=== PATIENT | female | born 1940 | race African-American/Black ===

== ENCOUNTER 2019-03-17 05:55 | Inpatient (IN) | payer BC ==
[2019-03-12 14:20] VITALS: BMI 26.5
[~2019-03-17 05:55] MED LIST: CEFAZOLIN 1 GM/D5W 1 GRAM/50 ML BAG IVPB ONE; TRANEXAMIC ACID 1000 MG/10 ML VIAL IVPUSH ONE; VANCOMYCIN 1,000 MG in DEXTROSE 5%-WATER - 250 ML IVPB ONE
[2019-03-17] MEDS ORDERED: BUPIVACAINE LIPOSOME/PF (EXPAREL) 266 MG/20 ML VIAL ONE (07:04)
[2019-03-17] MEDS ORDERED: SODIUM CHLORIDE 0.9% P/F 10 ML VIAL IJ ONE (07:04)
[2019-03-17] MEDS ORDERED: MIDAZOLAM HCL 2 MG/2 ML SINGLE DOSE VIAL ONE ×3 (07:04→07:31)
[2019-03-17] MEDS ORDERED: PROPOFOL 20 ML ONE ×2 (07:31)
[2019-03-17] MEDS ORDERED: TRANEXAMIC ACID 1000 MG/10 ML VIAL ONE ×2 (07:33→10:07)
[2019-03-17] MEDS ORDERED: ceFAZolin SODIUM 1 GM VIAL ONE ×2 (07:33→10:07)
[2019-03-17] MEDS ORDERED: VANCOMYCIN 1,000 MG VIAL (RESTRICTED TO ID ONLY) ONE (08:07)
[2019-03-17] MEDS ORDERED: BUPIVACAINE HCL/PF 0.5% (5 MG/ML) 30 ML VIAL IJ ONE (08:07)
[2019-03-17] MEDS ORDERED: MAG HYDROX/AL HYDROX/SIMETH 30 ML UNIT-DOSE CUP PO PRN (11:09)
[2019-03-17] MEDS ORDERED: MAGNESIUM HYDROX 2400MG/30ML ORAL SUSPENSION 30 ML CUP PO PRN (11:09)
[2019-03-17] MEDS ORDERED: ONDANSETRON 4 MG/2 ML VIAL IVPUSH PRN (11:09)
[2019-03-17] MEDS ORDERED: LACTATED RINGERS SOLUTION 1,000 ML IV SCH (11:15)
--- NOTE | 2019-03-17 12:04 | HP ---
CHIEF COMPLAINT: Right knee osteoarthritis PCP: Dr. Leoncio Bain [phone] Cardiology: Dr. Chahal [phone] HISTORY OF PRESENT ILLNESS: 79 year-old female with a PMH significant for HTN, HLD, CAD s/p stent, diastolic dysfunction, TIA, Type II IDDM, and tricompartment OA of the right knee, now s/p right subvastus posterior stabilized total knee arthroplasty ( cemented [place]) earlier today with Dr. Eduardo Lyn. Recent Travel: No PAST MEDICAL HISTORY: Hypertension Hyperlipidemia Coronary artery disease Grade I diastolic dysfunction TIA (2003) Type II IDDM Tuberculosis (1961) Bilateral knee osteoarthritis PAST SURGICAL HISTORY: Cardiac LEO (2016, Index) Caratracts Open removal of kidney stones 1972 Right knee arthroscopy Bunionectmy/Hammertoe Social History: ; lives with Victoria and grandson Lico Smoking: never Alcohol: rare Drugs: no Family History: Mother DM, left arm mass, 54; father HTN, prostate cancer with mets 89; 6 children, 1 with HTN Allergies No Known Allergies Allergy (Verified 03/12/19 13:58) HOME MEDICATIONS: Home Medications Medication Instructions Recorded Aspirin Coated [Ecotrin -] 81 mg PO DAILY 03/12/19 Gabapentin 300 mg PO BID 03/12/19 Hydrochlorothiazide [Hctz -] 25 mg PO DAILY 03/12/19 Insulin (Levemir) [Levemir Vial] 40 unit SQ DAILY 03/12/19 Losartan Potassium 50 mg PO DAILY 03/12/19 Metoprolol Succinate 25 mg PO BID 03/12/19 Rosuvastatin Calcium [Crestor] 40 mg PO DAILY 03/12/19 Semaglutide [Ozempic] 1 mg SQ WEEKLY 03/12/19 REVIEW OF SYSTEMS CONSTITUTIONAL: Absent: fever, chills, diaphoresis, generalized weakness, malaise, loss of appetite, weight change HEENT: Absent: rhinorrhea, nasal congestion, throat pain, throat swelling, difficulty swallowing, mouth swelling, ear pain, eye pain, visual changes CARDIOVASCULAR: Absent: chest pain, syncope, palpitations, irregular heart rate, lightheadedness , peripheral edema RESPIRATORY: Absent: cough, shortness of breath, dyspnea with exertion, orthopnea, wheezing, stridor, hemoptysis GASTROINTESTINAL: Absent: abdominal pain, abdominal distension, nausea, vomiting, diarrhea, constipation, melena, hematochezia GENITOURINARY: Absent: dysuria, frequency, urgency, hesitancy, hematuria, flank pain, genital pain MUSCULOSKELETAL: +10/10 right knee pain Absent: myalgia, arthralgia, joint swelling, back pain, neck pain SKIN: Absent: rash, itching, pallor HEMATOLOGIC/IMMUNOLOGIC: Absent: easy bleeding, easy bruising, lymphadenopathy, frequent infections ENDOCRINE: Absent: unexplained weight gain, unexplained weight loss, heat intolerance, cold intolerance NEUROLOGIC: Absent: headache, focal weakness or paresthesias, dizziness, unsteady gait, seizure, mental status changes, bladder or bowel incontinence PSYCHIATRIC: Absent: anxiety, depression, suicidal or homicidal ideation, hallucinations. PHYSICAL EXAMINATION Vital Signs - 24 hr 03/17/19 03/17/19 03/17/19 06:56 11:13 11:15 Temperature 98.1 F 98.0 F Pulse Rate 84 82 78 Respiratory 18 16 16 Rate Blood Pressure 118/69 95/57 L 97/58 L O2 Sat by Pulse 96 96 Oximetry (%) 03/17/19 03/17/19 03/17/19 11:20 11:25 11:40 Temperature Pulse Rate 76 78 76 Respiratory 16 16 16 Rate Blood Pressure 101/57 L 105/58 L 101/60 O2 Sat by Pulse 96 100 100 Oximetry (%) 03/17/19 11:55 Temperature Pulse Rate 69 Respiratory 16 Rate Blood Pressure 108/61 O2 Sat by Pulse 100 Oximetry (%) GENERAL: Awake, alert, and fully oriented, in no acute distress. HEAD: Normal with no signs of trauma. EYES: Pupils equal, round and reactive to light, extraocular movements intact, sclera anicteric, conjunctiva clear. No lid lag. LUNGS: Anterior breath sounds CTA HEART: Regular rate and rhythm, S1 and S2 ABDOMEN: Soft, nontender, not distended UPPER EXTREMITIES: 2+ pulses, warm, well-perfused. No cyanosis. No clubbing. No peripheral edema. LOWER EXTREMITIES: 2+ pulses, warm, well-perfused. No calf tenderness. No peripheral edema. SCDs, TEDs. Right knee surgical wrapping c/d/i; icepak NEUROLOGICAL: Cranial nerves II-XII intact. Normal speech. Laboratory Results - last 24 hr 03/17/19 07:09 POC Glucometer 82 Pre op 03/09/19 BUN 11 Cr 0.98 Hgb 11.0 Intra op Ancef 2g x 1 Vanc 1g x 1 LR 500 ASSESSMENT/PLAN 79 year-old female with a PMH significant for HTN, HLD, CAD s/p stent, diastolic dysfunction, TIA, Type II IDDM, and tricompartment OA of the right knee, now s/p right subvastus posterior stabilized total knee arthroplasty ( cemented [place]) earlier today with Dr. Eduardo Lyn. Tricompartment OA of the right knee s/p right subvastus posterior stabilized total knee arthroplasty --POD #0 --perioperative antibiotics per surgery --pain management per surgery --ASA 325mg daily --protonix --bowel regimen --incentive spirometry --+Hemovac drain: no recorded output Hypertension --BP stable --continue metoprolol Hyperlipidemia --continue Crestor Coronary artery disease --continue ASA, statin, metoprolol Diastolic dysfunction, Grade I --per echo 06/15/18 --not on diuretics TIA --continue ASA, statin Type II IDDM --Levemir --Novolog sliding scale coverage FEN Fluids: LR @125mL/hr Electrolytes: replete as indicated Nutrition: regular diet DVT prophylaxis: OOB, ambulation, SCDs, TEDs, ASA 325mg daily Physical therapy Dispo: continues to require inpatient care. Full code. Visit type - Emergency Visit Emergency Visit: Yes ED Registration Date: 03/17/19 Care time: The patient presented to the Emergency Department on the above date and was hospitalized for further evaluation of their emergent condition. - New Patient This patient is new to me today: Yes Date on this admission: 03/17/19 - Critical Care Critical Care patient: No
--- NOTE | 2019-03-17 14:27 | SURG ---
Surgery Stonemason Supervisor Note Stonemason Supervisor: Morteza Galeano PA-C Date of Service: 03/17/19 Diagnosis: Right OA, DJD Procedure: Right total knee replacement I was present for the entirety of the operative procedure. For further detail, please refer to operative report. Visit type - Case Type Case Type: Scheduled - New patient This patient is new to me today: Yes Date on this admission: 03/17/19
--- NOTE | 2019-03-17 15:57 | OP ---
DATE OF OPERATION: DATE OF DICTATION: 03/17/2019 SURGEON: Eduardo Lyn MD PARQUETRY FLOOR LAYER: FELISA Palmer PREOPERATIVE DIAGNOSIS: Tricompartmental osteoarthritis, right knee. POSTOPERATIVE DIAGNOSIS: Tricompartmental osteoarthritis, right knee. OPERATION PERFORMED: Right subvastus posterior stabilized total knee arthroplasty (cemented [place]). ANESTHESIA: Conscious sedation with spinal anesthesia and peripheral nerve block. ANTIBIOTICS GIVEN: 2 g Kefzol, 1 g vancomycin preoperative, 1 g Kefzol given at the end of the procedure. TXA 1 g preoperative, and 1 g at the time of seating of the implant. SPECIAL COMMENT: Jain, refuses blood transfusions. PROCEDURE: Patient correctly identified, brought to the operating room. Right lower extremity was prepped, draped in the routine manner with a Betadine scrub solution, wiped off with alcohol, DuraPrep applied. Free drape. The knee revealed the presence of a 20-degree fixed flexion deformity and 10-degree fixed varus deformity. A midline incision was utilized. The dissection was taken through the subcutaneous tissues to the quadriceps mechanism. The proximal and medial aspect of the tibia was dissected using Bovie for hemostasis purposes. The soft tissue elements were taken right off the bone bed appropriately. The subvastus was utilized by dissecting the epimysium of the vastus medialis and extended all the way back to the linea aspera. The vastus medialis was lifted off the soft tissue of the intramuscular septum in a stripping angle enough to facilitate easy dislocatability of the knee itself. The knee was flexed. The patella was subluxed laterally. The tibia externally rotated to alleviate tension on the quadriceps mechanism. This revealed the presence of severe tricompartmental osteoarthritis. The tibia was cut utilizing a [employer] jig system. This was cut to 3 degrees of external rotation and neutral varus/valgus, that is, 90 degrees to the shaft of the tibia. The measurement for the implant was that of a size 6 tibial tray. Large osteophyte was noted. The femur was then cut according to the jig system measuring a size 5 femoral component. The flexion and extension gaps were even at 13 mm. The menisci were resected along with peripheral margin using a bipolar cautery. Bone cuts were made from patella tendon. The lug holes were drilled into patella bone bed utilizing the appropriate lollipop jig. Once this has been performed, the patella and the quadriceps mechanisms were held out of harm's way, it was clearly noted at that point in time all bone cuts had made, the trialing components, which were measured at a size 5 femur, size 6 tibia, and a size 13 polyethylene patella button. This enabled easily tracking of the patella in a full range of movement from 0-130 degrees. The implants were seated utilizing regular cement. The bone bed was thoroughly lavaged with pulse lavage, and as a result of that, all extraneous cement was removed. Once the cement had been cured, a polyethylene posterior stabilized component inserted accordingly. The wounds were washed thoroughly. All extraneous cement had been removed. Used pulse lavage for washout. A 1/8-inch Hemovac was placed in the subvastus bed. The closure was as follows: All the soft tissue, retinacular tissues with No. 1 Vicryl right around to the posteromedial aspect of the femur to close the subvastus approach, subcutaneous 1 Vicryl, skin 3-0 Monocryl with Steri-Strips. Draining 1/8 inch as outlined above noted. Postoperative x-rays showed excellent position of the implants. No complications. MD MAGO Bernal/[id number]
[2019-03-17] MEDS: ACETAMINOPHEN 325 MG TABLET (FP) PO SCH ×2 (16:02→21:25)
[2019-03-17] MEDS: INSULIN SLIDING SCALE (NOVOLOG) 1 VIAL SQ SCH ×2 (17:13→21:27)
[2019-03-17] MEDS: oxyCODONE HCL 5 MG TABLET PO PRN ×3 (17:40→21:52)
[2019-03-17] MEDS: CEFAZOLIN 2 GM/D5W 2 GM/50 ML ML IVPB SCH (17:40)
[2019-03-17] MEDS: GABAPENTIN 300 MG CAPSULE (FP) PO SCH (21:26)
[2019-03-17] MEDS: SENNOSIDES/DOCUSATE COMBO (SENNA PLUS) TABLET (UD) PO SCH (21:27)
[2019-03-17] MEDS: ASCORBIC ACID 500 MG TABLET (FP) PO SCH (21:31)
[2019-03-17] MEDS: metoPROLOL SUCCINATE 25 MG TAB.SR.24H (FP) PO SCH (21:31)
[2019-03-17] MEDS ORDERED: GABAPENTIN 300 MG CAPSULE (FP) PO SCH ×2 (22:00)
[2019-03-18] MEDS: CEFAZOLIN 2 GM/D5W 2 GM/50 ML ML IVPB SCH (01:59)
[2019-03-18] MEDS: oxyCODONE HCL 5 MG TABLET PO PRN ×2 (01:59→06:48)
[2019-03-18] MEDS: ACETAMINOPHEN 325 MG TABLET (FP) PO SCH (03:16)
[2019-03-18] MEDS: INSULIN SLIDING SCALE (NOVOLOG) 1 VIAL SQ SCH ×4 (06:21→21:54)
[2019-03-18] MEDS: ASPIRIN 325 MG TABLET PO SCH (07:55)
[2019-03-18 08:16] LABS: HEMATOCRIT 31.1 % (32.4-45.2); HEMOGLOBIN 10.2 GM/dl (10.7-15.3); MCH 29.2 pg (25.7-33.7); MCHC 32.7 g/dl (32.0-36.0); MEAN CELL VOLUME 89.3 fl (80-96); MEAN PLT VOLUME 7.9 fl (7.5-11.1); PLATELET COUNT 238 K/MM3 (134-434); RBC 3.48 M/mm3 (3.60-5.2); RDW 14.8 % (11.6-15.6); WHITE BLOOD COUNT 6.7 K/mm3 (4.0-10.8)
[2019-03-18 08:18] LABS: CALCIUM 8.9 mg/dl (8.5-10); POTASSIUM 3.3 mmol/L (3.5-5.1)
--- NOTE | 2019-03-18 10:03 | PN ---
Progress Note (short form) - Note Progress Note: ANESTHESIA 79 YO FEMALE POD #1 S/P RTKA Patient doing well. Ambulating with assistance. Pain adequately controlled VSS, Afebrile Continue current care, encouraged IS use, No anesthetic complications
--- NOTE | 2019-03-18 10:25 | PN ---
Progress Note (short form) - Note Progress Note: 79yo F s/p Rt TKA POD 1, pt seen and examined sitting up in chair. Pt denies fever, chills, n/v. Pt states pain is controlled. Pt denies numbness or weakness in foot. Last Vital Signs Temp Pulse Resp BP Pulse Ox 98.4 F 69 18 113/41 L 94 L 03/18/19 10:00 03/18/19 10:00 03/18/19 10:00 03/18/19 10:00 03/18/19 10:00 CBC, BMP 03/18/19 07:40 03/18/19 07:40 PE: Gen: a&O X3 Resp: breathing comfortably Ext: RLE bandage in place, clean. Drain in place with serosanguinous drainage Output: 55ml Problem List - Problems (1) Total knee replacement status Assessment/Plan: Plan -pt appears to be doing well, will plan for discharge tomorrow to acute rehab -OOB/ambulate with PT -pain control -dvt ppx Code(s): Z96.659 - PRESENCE OF UNSPECIFIED ARTIFICIAL KNEE JOINT Qualifiers: Laterality: right Qualified Code(s): Z96.651 - Presence of right artificial knee joint
[2019-03-18] MEDS: SENNOSIDES/DOCUSATE COMBO (SENNA PLUS) TABLET (UD) PO SCH ×2 (10:42→21:54)
[2019-03-18] MEDS: PANTOPRAZOLE 40 MG TABLET (FP) PO SCH (10:42)
[2019-03-18] MEDS: GABAPENTIN 300 MG CAPSULE (FP) PO SCH ×2 (10:42→21:54)
[2019-03-18] MEDS: MULTIVITAMINS (DAILY MVI) TABLET (FP) PO SCH (10:42)
[2019-03-18] MEDS: ASCORBIC ACID 500 MG TABLET (FP) PO SCH ×2 (10:42→21:55)
[2019-03-18] MEDS: POTASSIUM CHLORIDE TABS 20 MEQ TABLET.ER (FP) PO SCH ×2 (10:42→15:46)
[2019-03-18] MEDS: INSULIN (LEVEMIR) 100 UNITS/ML UNITS SQ SCH (10:42)
[2019-03-18] MEDS: metoPROLOL SUCCINATE 25 MG TAB.SR.24H (FP) PO SCH ×2 (10:42→21:55)
[2019-03-18] MEDS: ROSUVASTATIN CA 40 MG TABLET PO SCH (10:43)
[2019-03-18] MEDS: HYDROCHLOROTHIAZIDE 25 MG TABLET (FP) PO SCH (10:44)
[2019-03-18] MEDS: LOSARTAN POTASSIUM 50 MG TABLET (FP) PO SCH (10:44)
--- NOTE | 2019-03-18 11:56 | PN ---
Physical Exam: SUBJECTIVE: Patient seen and examined OBJECTIVE: Vital Signs Period Temp Pulse Resp BP Sys/Foster Pulse Ox Last 24 Hr 98.0 F-99.7 F 69-87 16-18 105-152/41-71 94-100 GENERAL: The patient is awake, alert, and fully oriented, in no acute distress. HEAD: Normal with no signs of trauma. EYES: PERRL, extraocular movements intact, sclera anicteric, conjunctiva clear. No ptosis. ENT: Ears normal, nares patent, oropharynx clear without exudates, moist mucous membranes. NECK: Trachea midline, full range of motion, supple. LUNGS: Breath sounds equal, clear to auscultation bilaterally, no wheezes, no crackles, no accessory muscle use. HEART: Regular rate and rhythm, S1, S2 without murmur, rub or gallop. ABDOMEN: Soft, nontender, nondistended, normoactive bowel sounds, no guarding, no rebound, no hepatosplenomegaly, no masses. EXTREMITIES: 2+ pulses, warm, well-perfused, no edema. NEUROLOGICAL: Cranial nerves II through XII grossly intact. Normal speech, gait not observed. PSYCH: Normal mood, normal affect. SKIN: Warm, dry, normal turgor, no rashes or lesions noted Laboratory Results - last 24 hr 03/17/19 03/17/19 03/17/19 11:42 16:50 20:42 WBC RBC Hgb Hct MCV MCH MCHC RDW Plt Count MPV Sodium Potassium Chloride Carbon Dioxide Anion Gap BUN Creatinine Est GFR (CKD-EPI)AfAm Est GFR (CKD-EPI)NonAf POC Glucometer 81 88 147 Random Glucose Calcium 03/18/19 03/18/19 03/18/19 06:14 07:40 07:40 WBC 6.7 RBC 3.48 L Hgb 10.2 L Hct 31.1 L MCV 89.3 MCH 29.2 MCHC 32.7 RDW 14.8 Plt Count 238 MPV 7.9 Sodium 136 Potassium 3.3 L Chloride 95 L Carbon Dioxide 31 Anion Gap 10 BUN 14.0 Creatinine 1.0 Est GFR (CKD-EPI)AfAm 61.62 Est GFR (CKD-EPI)NonAf 53.17 POC Glucometer 182 Random Glucose 161 H Calcium 8.9 03/18/19 11:50 WBC RBC Hgb Hct MCV MCH MCHC RDW Plt Count MPV Sodium Potassium Chloride Carbon Dioxide Anion Gap BUN Creatinine Est GFR (CKD-EPI)AfAm Est GFR (CKD-EPI)NonAf POC Glucometer 175 Random Glucose Calcium Active Medications Generic Name Dose Route Start Last Admin Trade Name Freq PRN Reason Stop Dose Admin Acetaminophen 1,000 mg 03/18/19 07:35 Ofirmev Injection - IVPB Q6H PRN PAIN Al Hydroxide/Mg Hydroxide 30 ml 03/17/19 11:09 Mylanta Oral Suspension - PO Q4H PRN DYSPEPSIA Ascorbic Acid 500 mg 03/17/19 22:00 03/18/19 10:42 Vitamin C - PO 500 mg BID WICHO Administration Aspirin 325 mg 03/18/19 08:00 03/18/19 07:55 Asa - PO 325 mg DAILY@0800 WICHO Administration Gabapentin 600 mg 03/17/19 22:00 03/18/19 10:42 Neurontin - PO 600 mg BID WICHO Administration Hydrochlorothiazide 25 mg 03/18/19 10:00 03/18/19 10:44 Hctz - PO Not Given DAILY [facility] Insulin Aspart 1 vial 03/17/19 16:30 03/18/19 06:21 Novolog Vial Sliding Scale - SQ 2 units ACHS WICHO Administration Protocol Insulin Detemir 40 units 03/18/19 10:00 03/18/19 10:42 Levemir Vial SQ 40 units DAILY WICHO Administration Losartan Potassium 50 mg 03/18/19 10:00 03/18/19 10:44 Cozaar - PO Not Given DAILY WICHO Magnesium Hydroxide 30 ml 03/17/19 11:09 Milk Of Magnesia - PO PRN PRN CONSTIPATION Metoprolol Succinate 25 mg 03/17/19 22:00 03/18/19 10:42 Toprol Xl - PO 25 mg BID WICHO Administration Multivitamins/Minerals/Vitamin C 1 tab 03/18/19 10:00 03/18/19 10:42 Tab-A-Vit - PO 1 tab DAILY WICHO Administration Non-Formulary Medication 1 mg 03/21/19 10:00 Semaglutide [Ozempic] SQ Jerome WICHO Ondansetron HCl 4 mg 03/17/19 11:09 03/18/19 07:55 Zofran Injection IVPUSH 4 mg Q6H PRN Administration NAUSEA Oxycodone HCl 10 mg 03/17/19 14:59 03/18/19 06:48 Roxicodone - PO 03/20/19 14:59 10 mg Q4H PRN Administration PAIN LEVEL 6-10 Oxycodone HCl 5 mg 03/17/19 14:59 03/17/19 18:16 Roxicodone - PO 03/20/19 14:59 5 mg Q4H PRN Administration PAIN LEVEL 1-5 Pantoprazole Sodium 40 mg 03/18/19 10:00 03/18/19 10:42 Protonix - PO 40 mg DAILY WICHO Administration Potassium Chloride 40 meq 03/18/19 09:00 03/18/19 10:42 K-Dur - PO 03/18/19 15:01 40 meq Q6H WICHO Administration Rosuvastatin Calcium 40 mg 03/18/19 10:00 03/18/19 10:43 Crestor - PO 40 mg DAILY WICHO Administration Senna/Docusate Sodium 2 tablet 03/17/19 22:00 03/18/19 10:42 Pericolace - PO 2 tablet BID WICHO Administration ASSESSMENT/PLAN: 79 year-old female with a PMH significant for HTN, HLD, CAD s/p stent, diastolic dysfunction, TIA, Type II IDDM, and tricompartment OA of the right knee, now s/p right subvastus posterior stabilized total knee arthroplasty. s/p right subvastus posterior stabilized total knee arthroplasty --POD #1 --perioperative antibiotics per surgery --pain management per surgery --ASA 325mg daily --protonix --bowel regimen --incentive spirometry --+Hemovac drain: 55cc's sanguinous output Hypertension --BP borderline low, hold HCTZ and losartan today --continue metoprolol Hyperlipidemia --continue Crestor Coronary artery disease --continue ASA, statin, metoprolol Diastolic dysfunction, Grade I --per echo 06/15/18 --hold HCTZ today for low BP TIA --continue ASA, statin Type II IDDM --Levemir --Novolog sliding scale coverage Hypokalemia --replete FEN Fluids: PO intake adequate Electrolytes: replete as indicated Nutrition: regular diet DVT prophylaxis: OOB, ambulation, SCDs, TEDs, ASA 325mg daily Physical therapy Dispo: continues to require inpatient care. Full code. Visit type - Emergency Visit Emergency Visit: No - New Patient This patient is new to ca today: No - Critical Care Critical Care patient: No
[2019-03-18] MEDS: ACETAMINOPHEN 1000 MG/100 ML VIAL (NON FORMULARY) IVPB PRN ×2 (15:44→22:48)
[2019-03-18] MEDS ORDERED: INSULIN (NOVOLOG) ASPART 100 UNITS/ML 10ML VIAL ONE (16:43)
[2019-03-19] MEDS: oxyCODONE HCL 5 MG TABLET PO PRN (00:59)
[2019-03-19] MEDS: ACETAMINOPHEN 1000 MG/100 ML VIAL (NON FORMULARY) IVPB PRN ×2 (05:37→13:10)
[2019-03-19] MEDS: INSULIN SLIDING SCALE (NOVOLOG) 1 VIAL SQ SCH ×2 (07:02→11:57)
[2019-03-19 08:30] LABS: HEMATOCRIT 27.7 % (32.4-45.2); HEMOGLOBIN 9.2 GM/dl (10.7-15.3); MCH 29.5 pg (25.7-33.7); MCHC 33.3 g/dl (32.0-36.0); MEAN CELL VOLUME 88.8 fl (80-96); MEAN PLT VOLUME 8.5 fl (7.5-11.1); PLATELET COUNT 199 K/MM3 (134-434); RBC 3.12 M/mm3 (3.60-5.2); RDW 14.7 % (11.6-15.6); WHITE BLOOD COUNT 7.2 K/mm3 (4.0-10.8)
[2019-03-19] MEDS: ASPIRIN 325 MG TABLET PO SCH (08:30)
[2019-03-19 08:40] LABS: CALCIUM 8.4 mg/dl (8.5-10); CREATININE 0.9 mg/dl (0.55-1.3); MAGNESIUM 1.9 mg/dL (1.8-2.4); POTASSIUM 4.2 mmol/L (3.5-5.1)
[2019-03-19] MEDS: MULTIVITAMINS (DAILY MVI) TABLET (FP) PO SCH (10:06)
[2019-03-19] MEDS: PANTOPRAZOLE 40 MG TABLET (FP) PO SCH (10:06)
[2019-03-19] MEDS: GABAPENTIN 300 MG CAPSULE (FP) PO SCH (10:06)
[2019-03-19] MEDS: SENNOSIDES/DOCUSATE COMBO (SENNA PLUS) TABLET (UD) PO SCH (10:06)
[2019-03-19] MEDS: ASCORBIC ACID 500 MG TABLET (FP) PO SCH (10:06)
[2019-03-19] MEDS: ROSUVASTATIN CA 40 MG TABLET PO SCH (10:06)
[2019-03-19] MEDS: metoPROLOL SUCCINATE 25 MG TAB.SR.24H (FP) PO SCH (10:07)
--- NOTE | 2019-03-19 10:28 | PN ---
Progress Note (short form) - Note Progress Note: POD#2 Pt without any complaints of CP/SOB. OOB to chair this am. Passing flatus. No BM. Vital Signs Period Temp Pulse Resp BP Sys/Foster Pulse Ox Last 24 Hr 97.6 F-100.1 F 77-83 18-18 107-140/45-60 95-98 Hemovac: serosangrenous GEN: A&0x3, NAD CV: RRR Lungs: CTA b/l ABD: soft, non-distended, non-tender. Right knee: hemovac removed with the drain tip intact. Surgical dressing c/d/i. No calf tenderness or swelling noted b/l. TEDs/SCDS in place b/l. 5/5 dorsi/plantar flexion b/l. CBC, BMP 09/20/19 07:37 09/20/19 07:37 Problem List - Problems (1) Total knee replacement status Assessment/Plan: s/p R total knee replacement, POD#1. Pt doing well post-operatively. Plan for discharge today, drain removed. Discharge instructions completed. Pt will need aspirin 81mg bid for DVT prevention. Pain managment with percocoet Stool softners/colace. D/w / Riki. Code(s): Z96.659 - PRESENCE OF UNSPECIFIED ARTIFICIAL KNEE JOINT Qualifiers: Laterality: right Qualified Code(s): Z96.651 - Presence of right artificial knee joint
[2019-03-19] MEDS: INSULIN (LEVEMIR) 100 UNITS/ML UNITS SQ SCH (11:03)
[2019-03-19 13:01] VITALS: BP 125/63; PULSE 82; TEMP 98.2
[2019-03-19] MEDS: HYDROCHLOROTHIAZIDE 25 MG TABLET (FP) PO SCH (13:09)
[2019-03-19] MEDS: LOSARTAN POTASSIUM 50 MG TABLET (FP) PO SCH (13:10)
[2019-03-19] MEDS ORDERED: ASPIRIN 81 MG CHEWABLE TABLETS PO SCH (22:00)
[2019-03-21] MEDS ORDERED: PATIENT'S OWN MEDICATION (NON-FORMULARY) (Semaglutide [Ozempic] 1 MG) SQ SCH (10:00)
--- NOTE | 2019-03-25 09:14 | PATH ---
Surgical Pathology Report Patient Name: JEAN PIERRE OLSON Med. Rec. #: [id number] /Age/Gender: 1940 (Age: 79) / F Account: [id number] Location: [facility] MED-SURG Taken: 03/17/2019 Received: 03/17/2019 Reported: 03/25/2019 Physicians: Eduardo Lyn M.D. Specimen(s) Received BONES RIGHT KNEE Clinical History Right knee, osteoarthritis Final Diagnosis BONE, RIGHT KNEE, TOTAL KNEE REPLACEMENT: DEGENERATIVE JOINT DISEASE. Electronically Signed Mary Ann Feliciano M.D. Gross Description Received in formalin, labeled "bones right knee" is a 9.5 x 6.5 x 2.5 cm aggregate of multiple portions of bone and soft tissue. The tibial plateau measures 9 x 5.5 x 5 cm. The articular surface shows areas of eburnation and appears granular. The underlying trabecular bone is yellow and hard. Sampling Theory Teacher sections are submitted in one cassette, following decalcification.
== END 2019-03-19 16:28 | disposition home or self-care (01) | DRG 470 ==
LOC: FM/S 05:55
PROVIDERS: ADMIT Orthopaedic Surgery Orthopaedic Surgery of the Spine; ATTEND Nurse Practitioner Acute Care
PROC: 0SRC0J9 Replacement of Right Knee Joint with Synthetic Substitute, Cemented, Open Approach (ICD-10-PCS; principal; 2019-03-17 09:19)
DX: M17.11 Unilateral primary osteoarthritis, right knee (principal); I10 Essential (primary) hypertension; I25.10 Atherosclerotic heart disease of native coronary artery without angina pectoris; E78.5 Hyperlipidemia, unspecified; E11.9 Type 2 diabetes mellitus without complications; E87.6 Hypokalemia; Z86.73 Personal history of transient ischemic attack (TIA), and cerebral infarction without residual deficits; Z95.5 Presence of coronary angioplasty implant and graft; Z96.651 Presence of right artificial knee joint
CPT/HCPCS: 36415; 73560-TC-RT-FY; 80048; 82962; 83735; 85027; 88304-TC; 88311-TC; 94760; 97116-GP; 97163-GP; J0131